=== PATIENT | female | born 1995 | race Caucasian/White ===

== ENCOUNTER 2018-05-29 08:45 | Emergency (ER) | payer BC, OTHER ==
[~2018-05-29] VITALS: Ht 170.2 cm; Wt 90.7 kg
[~2018-05-29 08:45] MED LIST: BCP
--- OUTSIDE RECORDS SUMMARY | 2018-05-29 10:05 | XMS REPORT ---
Author Author KHURRAM JAUREGUI Organization [facility] Address [address] [place] [address] Care Team Providers Care Yard Conductor Name Role Phone KHURRAM JAUREGUI Unavailable PROBLEMS Type Condition ICD9-CM Code HNY28-WI Code Onset Dates Condition Status SNOMED Code Problem Acute pharyngitis 462 Active 606390630 Problem Acute upper respiratory infections of unspecified site 465.9 Active 74721252 Problem examination or test, unconfirmed V72.40 Active 210522047 Problem Fever, unspecified 780.60 Active 527872462 Problem Hand(s) except finger(s) alone, insect bite, nonvenomous, without mention of infection 914.4 Active 06245385 ALLERGIES No Known Allergies ENCOUNTERS Encounter Location Date Diagnosis [facility] [id number] [place] [phone] October, Sore throat J02.9 and Aphthous ulcer K12.0 [facility] [id number] [place] [address] Jan, Sore throat 462 [facility] [id number] [place] [address] Nov, Abscess 682.9 [facility] [id number] [place] [address] Nov, [facility] [id number] [place] [address] Sep, [facility] [id number] [place] [address] Sep, [facility] [id number] [place] [address] May, [facility] [address] [facility] [id number], [place] [address] May, [facility] [address] [facility] [id number], [place] [address] Feb, [facility] [address] [facility] [id number], [place] [address] Feb, [facility] [address] [facility] [id number], [place] [address] Feb, [facility] [address] [facility] [id number], [place] [address] Feb, [facility] [address] [facility] [id number], [place] [address] Dec, [facility] [address] [facility] [id number], [place] [address] Dec, IMMUNIZATIONS No Known Immunizations SOCIAL HISTORY Never Assessed REASON FOR VISIT sore throat Pt c/o sore throat for 2-3 days JAMAAL Muller PLAN OF CARE Activity Details Follow Up prn Reason: VITAL SIGNS Height 66 in 2017-11-13 Weight 219.6 lbs 2017-11-13 Temperature 97.9 degrees Fahrenheit 2017-11-13 Heart Rate 96 bpm 2017-11-13 Respiratory Rate 18 2017-11-13 BMI 35.44 kg/m2 2017-11-13 Blood pressure systolic 120 mmHg 2017-11-13 Blood pressure diastolic 76 mmHg 2017-11-13 MEDICATIONS Medication Instructions Dosage Frequency Start Date End Date Duration [facility] Active RESULTS Name Result Date Reference Range STREP A (IN HOUSE) 2017-11-13 STREP A negative Control + Lot # [id number] Exp date 2020-04-03 PROCEDURES Procedure Date Ordered Result Body Site STREP A ASSAY W/OPTIC November 13, 2017 INSTRUCTIONS MEDICATIONS ADMINISTERED No Known Medications
--- OUTSIDE RECORDS SUMMARY | 2018-05-29 10:05 | XMS REPORT ---
Author Author YARELIS CHUN [facility] Address [address] [place] [address] Care Team Providers Care Accounts Receivable Manager Name Role Phone ADIEL YARELIS Unavailable PROBLEMS Type Condition ICD9-CM Code END09-RV Code Onset Dates Condition Status SNOMED Code Problem Acute pharyngitis 462 Active 067370085 Problem Acute upper respiratory infections of unspecified site 465.9 Active 27721089 Problem examination or test, unconfirmed V72.40 Active 213131744 Problem Fever, unspecified 780.60 Active 585579566 Problem Hand(s) except finger(s) alone, insect bite, nonvenomous, without mention of infection 914.4 Active 03832243 ALLERGIES No Information ENCOUNTERS Encounter Location Date Diagnosis [facility] [id number] [place] [address] Apr, test positive Z32.01 [facility] [id number] [place] [address] October, Sore throat J02.9 and Aphthous ulcer K12.0 [facility] [id number] [place] [address] Jan, Sore throat 462 [facility] [id number] [place] [address] Nov, Abscess 682.9 [facility] [address] [address] Nov, [facility] [id number] [place] [address]- [address] 14 Sep, 2014 [facility] [address] [address] Sep, [facility] [address] [id number] [address] May, [facility] [id number] [place] [address] May, [facility] [id number] [address] Feb, [facility] [id number] [place] [address]- [address] Feb, [facility] [id number] [address] Feb, [facility] [id number] [place] [address] Feb, [facility] [id number] [place] [address] Dec, [facility] [id number], [place] [address] Dec, IMMUNIZATIONS No Known Immunizations SOCIAL HISTORY Never Assessed REASON FOR VISIT test (walk-in) PLAN OF CARE VITAL SIGNS MEDICATIONS Unknown Medications RESULTS Name Result Date Reference Range TEST, URINE (IN HOUSE) 2018-05-23 RESULTS POSITIVE Lot # [id number] Control + Exp date 23 Nov 2019 PROCEDURES No Known procedures INSTRUCTIONS MEDICATIONS ADMINISTERED No Known Medications
--- OUTSIDE RECORDS SUMMARY | 2018-05-29 10:05 | XMS REPORT | Continuity of Care Document ---
Author Author [facility] Address Unknown Phone Unavailable Allergies Active Description Code Type Severity Reaction Onset Reported/Identified Relationship to Patient Clinical Status Yes No Known Drug Allergies [id number] Drug Allergy Unknown N/A 04/24/2016 Medications There is no data. Problems Date Dx Coded Attending Type Code Diagnosis Diagnosed By 12/31/2013 THERON TANG APRN 914.4 INSECT BITE 12/31/2013 YARELIS CHUN DO 914.4 INSECT BITE 12/31/2013 SHAYLA HUMPHREYS APRN 914.4 INSECT BITE 03/03/2014 YARELIS CHUN DO V72.40 TEST 03/03/2014 SHAYLA HUMPHREYS APRN V72.40 TEST 06/13/2014 SHAYLA HUMPHREYS APRN S 462 PHARYNGITIS ACUTE 06/13/2014 SHAYLA HUMPHREYS APRN S 465.9 UPPER RESPIRATORY INFECTION 06/13/2014 SHAYLA HUMPHREYS APRN S 780.60 FEVER, UNSPECIFIED 04/24/2016 PRATIBHA DO CANDY K Ot F10.10 ALCOHOL ABUSE, UNCOMPLICATED 04/24/2016 PRATIBHA DO, CANDY K Ot F17.210 NICOTINE DEPENDENCE, CIGARETTES, UNCOMPL 04/24/2016 PRATIBHA DO, CANDY K Ot F41.9 ANXIETY DISORDER, UNSPECIFIED 04/24/2016 PRATIBHA DO, CANDY K Ot R00.2 PALPITATIONS 04/25/2016 PRATIBHA DO CANDY K Ot F10.10 ALCOHOL ABUSE, UNCOMPLICATED 04/25/2016 PRATIBHA DO, CANDY K Ot F17.210 NICOTINE DEPENDENCE, CIGARETTES, UNCOMPL 04/25/2016 PRATIBHA DO, CANDY K Ot F41.9 ANXIETY DISORDER, UNSPECIFIED 04/25/2016 PRATIBHA DO, CANDY K Ot R00.2 PALPITATIONS 04/25/2016 PRATIBHA DO CANDY K Ot F10.10 ALCOHOL ABUSE, UNCOMPLICATED 04/25/2016 CANDY MCKINNON DO Ot F17.210 NICOTINE DEPENDENCE, CIGARETTES, UNCOMPL 04/25/2016 CANDY MCKINNON DO Ot F41.9 ANXIETY DISORDER, UNSPECIFIED 04/25/2016 CANDY MCKINNON DO Ot R00.2 PALPITATIONS Procedures Code Description [place] [address] ROUTINE VENIPUNCTURE 03/03/2014 11847 TEST, SERUM (RML) 03/03/2014 86420 STREP A (IN-HOUSE) 06/13/2014 02251 INFLUENZA A & B (IN-HOUSE) 06/13/2014 Results Test Result Range Complete blood count (CBC) with automated white blood cell (WBC) differential - 04/24/16 01:32 Blood leukocytes automated count (number/volume) 10.8 10*3/uL 4.3-11.0 Blood erythrocytes automated count (number/volume) 4.17 10*6/uL 4.35-5.85 Venous blood hemoglobin measurement (mass/volume) 12.0 g/dL 11.5-16.0 Blood hematocrit (volume fraction) 36 % 35-52 Automated erythrocyte mean corpuscular volume 85 [foz_us] 80-99 Automated erythrocyte mean corpuscular hemoglobin (mass per erythrocyte) 29 pg 25-34 Automated erythrocyte mean corpuscular hemoglobin concentration measurement ( mass/volume) 34 g/dL 32-36 Automated erythrocyte distribution width ratio 13.3 % 10.0-14.5 Automated blood platelet count (count/volume) 397 10*3/uL 130-400 Automated blood platelet mean volume measurement 9.9 [foz_us] 7.4-10.4 Automated blood neutrophils/100 leukocytes 60 % 42-75 Automated blood lymphocytes/100 leukocytes 28 % 12-44 Blood monocytes/100 leukocytes 8 % 0-12 Automated blood eosinophils/100 leukocytes 4 % 0-10 Automated blood basophils/100 leukocytes 0 % 0-10 Blood neutrophils automated count (number/volume) 6.5 10*3 1.8-7.8 Blood lymphocytes automated count (number/volume) 3.0 10*3 1.0-4.0 Blood monocytes automated count (number/volume) 0.8 10*3 0.0-1.0 Automated eosinophil count 0.4 10*3/uL 0.0-0.3 Automated blood basophil count (count/volume) 0.0 10*3/uL 0.0-0.1 Serum or plasma choriogonadotropin ( test) detection - 04/24/16 01:32 Serum or plasma choriogonadotropin ( test) detection NEGATIVE NEGATIVE Comprehensive metabolic panel - 04/24/16 01:32 Serum or plasma sodium measurement (moles/volume) 141 mmol/L 135-145 Serum or plasma potassium measurement (moles/volume) 3.4 mmol/L 3.6-5.0 Serum or plasma chloride measurement (moles/volume) 108 mmol/L 98-107 Carbon dioxide 22 mmol/L 21-32 Serum or plasma anion gap determination (moles/volume) 11 mmol/L 5-14 Serum or plasma urea nitrogen measurement (mass/volume) 12 mg/dL 7-18 Serum or plasma creatinine measurement (mass/volume) 0.74 mg/dL 0.60-1.30 Serum or plasma urea nitrogen/creatinine mass ratio 16 NRG Serum or plasma creatinine measurement with calculation of estimated glomerular filtration rate > NRG Serum or plasma glucose measurement (mass/volume) 124 mg/dL 70-105 Serum or plasma calcium measurement (mass/volume) 9.3 mg/dL 8.5-10.1 Serum or plasma total bilirubin measurement (mass/volume) 0.2 mg/dL 0.1-1.0 Serum or plasma alkaline phosphatase measurement (enzymatic activity/volume) 75 U/L 40-136 Serum or plasma aspartate aminotransferase measurement (enzymatic activity/ volume) 19 U/L 5-34 Serum or plasma alanine aminotransferase measurement (enzymatic activity/volume ) 21 U/L 0-55 Serum or plasma protein measurement (mass/volume) 7.1 g/dL 6.4-8.2 Serum or plasma albumin measurement (mass/volume) 4.0 g/dL 3.2-4.5 Magnesium - 04/24/16 01:32 Magnesium 2.2 mg/dL 1.8-2.4 Serum or plasma thyrotropin measurement by detection limit <=0.05 miu/l (units/ volume) - 04/24/16 01:32 Serum or plasma thyrotropin measurement by detection limit <=0.05 miu/l (units/ volume) 3.55 u[iU]/mL 0.35-4.94 Urine drug screening test - 04/24/16 01:50 Urine phencyclidine detection by screening method NEGATIVE NEGATIVE Urine benzodiazepines detection by screening method NEGATIVE NEGATIVE Urine cocaine detection NEGATIVE NEGATIVE Urine amphetamines detection by screening method NEGATIVE NEGATIVE Urine methamphetamine detection by screening method NEGATIVE NEGATIVE Urine cannabinoids detection by screening method NEGATIVE NEGATIVE Urine opiates detection by screening method NEGATIVE NEGATIVE Urine barbiturates detection NEGATIVE NEGATIVE Screening urine tricyclic antidepressants detection NEGATIVE NEGATIVE Urine methadone detection by screening method NEGATIVE NEGATIVE Urine oxycodone detection NEGATIVE NEGATIVE Urine propoxyphene detection NEGATIVE NEGATIVE Urine buprenophrine screen NEGATIVE NEGATIVE Encounters ACCT No. Visit Date/Time Discharge Status Pt. Type Provider Facility Loc./Unit Complaint [id number] 06/13/2014 10:22:00 06/13/2014 23:59:59 CLS Outpatient SHAYLA HUMPHREYS APRN [id number] 03/03/2014 11:17:00 03/03/2014 23:59:59 CLS Outpatient YARELIS CHUN DO [id number] 12/31/2013 09:30:00 12/31/2013 23:59:59 CLS Outpatient THERON TANG APRN [id number] 04/24/2016 00:45:00 04/24/2016 02:38:00 DIS Emergency CANDY MCKINNON DO [facility] ER ELEVATED HEART RATE [id number] 11/13/2017 15:30:00 11/13/2017 23:59:59 CLS Outpatient YARELIS CHUN DO [facility]
[2018-05-29 11:22] LABS: BASOPHILS % (AUTO) 0 % (0-10); EOSINOPHILS # (AUTO) 0.3 10^3/uL (0.0-0.3); EOSINOPHILS % (AUTO) 3 % (0-10); HEMATOCRIT 38 % (35-52); HEMOGLOBIN 12.6 G/DL (11.5-16.0); LYMPHOCYTES # (AUTO) 2.6 X 10^3 (1.0-4.0); LYMPHOCYTES % (AUTO) 26 % (12-44); MEAN CORPUSCULAR HEMOGLOBIN 29 PG (25-34); MEAN CORPUSCULAR HGB CONC 33 G/DL (32-36); MEAN CORPUSCULAR VOLUME 88 FL (80-99); MEAN PLATELET VOLUME 9.4 FL (7.4-10.4); MONOCYTES # (AUTO) 0.6 X 10^3 (0.0-1.0); MONOCYTES % (AUTO) 6 % (0-12); NEUTROPHILS # (AUTO) 6.5 X 10^3 (1.8-7.8); NEUTROPHILS % (AUTO) 65 % (42-75); PLATELET COUNT 405 10^3/uL (130-400); RED BLOOD COUNT 4.35 10^6/uL (4.35-5.85); RED CELL DISTRIBUTION WIDTH 12.7 % (10.0-14.5)
--- NOTE | 2018-05-29 12:18 | ED GU-Female ---
General Chief Complaint: -Female Stated Complaint: POSS MISCARRIAGE 5 WKS PREG Nursing Triage Note: Pt ambulated to rm 9 w/o difficulty. Pt reports spotting began Sunday and then heavy bleeding at 0300 this AM. Pt describes bleeding as "a lot" when going to the restroom. Pt c/o cramping. Nursing Sepsis Screen: No Definite Risk Source: patient Exam Limitations: no limitations History of Present Illness Date Seen by Provider: May 29, 2018 Time Seen by Provider: 11:14 Initial Comments 22-year-old female who presents to the emergency room with complaints of vaginal spotting that began 4 days ago. She reports that the bleeding was heavier than normal this morning. She reports that last week she had a positive test at home and then a urine test at and they're estimating her at 5 weeks and that this is her first . She sees for PCP. Timing/Duration: week Allergies and Home Medications Allergies Coded Allergies: No Known Drug Allergies (Unverified , 04/24/16) Patient Home Medication List Home Medication List Reviewed: Yes Review of Systems Review of Systems Constitutional: no symptoms reported, see HPI : Yes LMP: Apr 22, 2018 All Other Systemes Reviewed Negative Unless Noted: Yes Past Deqnsqh-Amcutb-Wxsyng Hx Past Med/Social Hx: Reviewed Nursing Past Med/Soc Hx Patient Social History Alcohol Use: Occasionally Uses Recreational Drug Use: No Smoking Status: Former Smoker Type Used: Cigarettes Recent Foreign Travel: No Contact w/Someone Who Travel: No Recent Infectious Disease Expo: No Recent Hopitalizations: No Physical Abuse: No Sexual Abuse: No Seasonal Allergies Seasonal Allergies: No Past Medical History Surgeries: No Respiratory: No Cardiac: No Neurological: No Reproductive Disorders: No Gastrointestinal: No Musculoskeletal: No Endocrine: No Cancer: No Psychosocial: No Integumentary: No Blood Disorders: No Family Medical History Reviewed Nursing Family Hx Physical Exam Vital Signs Vital Signs - First Documented 05/29/18 11:00 Temp 98.7 Pulse 90 Resp 16 B/P (MAP) 132/99 (110) Pulse Ox 98 O2 Delivery Room Air Capillary Refill : Less Than 3 Seconds Height, Weight, BMI Height: 5'7.00" Weight: 200lbs. oz. 90.572856mn; BMI Method:Stated General Appearance: WD/WN, no apparent distress Cardiovascular: normal peripheral pulses, regular rate, rhythm, no edema, no gallop, no JVD, no murmur Respiratory: chest non-tender, lungs clear, normal breath sounds, no respiratory distress, no accessory muscle use, respiratory distress Gastrointestinal: normal bowel sounds, non tender, soft, no organomegaly, no pulsatile mass, abnormal bowel sounds Neurologic/Psychiatric: alert, normal mood/affect, oriented x 3 Skin: normal color, warm/dry Progress/Results/Core Measures Suspected Sepsis Recent Fever Within 48 Hours: No Infection Criteria Present: None New/Unexplained Altered Menta: No Sepsis Screen: No Definite Risk SIRS Temperature:98.7 Pulse: 90 Respiratory Rate: 16 Laboratory Tests 05/29/18 11:15: White Blood Count 10.0 Blood Pressure 132 /99 Mean: 110 Laboratory Tests 05/29/18 11:15: Platelet Count 405H Results/Orders Lab Results Laboratory Tests Test 05/29/18 11:15 05/29/18 12:25 Range/Units White Blood Count 10.0 4.3-11.0 10^3/uL Red Blood Count 4.35 4.35-5.85 10^6/uL Hemoglobin 12.6 11.5-16.0 G/DL Hematocrit 38 35-52 % Mean Corpuscular Volume 88 80-99 FL Mean Corpuscular Hemoglobin 29 25-34 PG Mean Corpuscular Hemoglobin Concent 33 32-36 G/DL Red Cell Distribution Width 12.7 10.0-14.5 % Platelet Count 405 H 130-400 10^3/uL Mean Platelet Volume 9.4 7.4-10.4 FL Neutrophils (%) (Auto) 65 42-75 % Lymphocytes (%) (Auto) 26 12-44 % Monocytes (%) (Auto) 6 0-12 % Eosinophils (%) (Auto) 3 0-10 % Basophils (%) (Auto) 0 0-10 % Neutrophils # (Auto) 6.5 1.8-7.8 X 10^3 Lymphocytes # (Auto) 2.6 1.0-4.0 X 10^3 Monocytes # (Auto) 0.6 0.0-1.0 X 10^3 Eosinophils # (Auto) 0.3 0.0-0.3 10^3/uL Basophils # (Auto) 0.0 0.0-0.1 10^3/uL Human Chorionic Gonadotropin, Quant 13 H <5 MIU/ML Urine Color YELLOW Urine Clarity VERY CLOUDY H Urine pH 5 5-9 Urine Specific [place] 1.010 L 1.016-1.022 Urine Protein 2+ H NEGATIVE Urine Glucose (UA) NEGATIVE NEGATIVE Urine Ketones NEGATIVE NEGATIVE Urine Nitrite NEGATIVE NEGATIVE Urine Bilirubin NEGATIVE NEGATIVE Urine Urobilinogen NORMAL NORMAL MG/DL Urine Leukocyte Esterase 1+ H NEGATIVE Urine RBC (Auto) 5+ H NEGATIVE Urine RBC >100 H /HPF Urine WBC 2-5 /HPF Urine Crystals NONE /LPF Urine Bacteria TRACE /HPF Urine Casts NONE /LPF Urine Mucus NEGATIVE /LPF Urine Culture Indicated NO My Orders Orders - SHALINI BOUDREAUX Us Ob Transvaginal [id number] (05/29/18 10:59) Vital Signs/I&O Capillary Refill : Less Than 3 Seconds Blood Pressure Mean: 110 Progress Note : Time: 12:17 Progress Note I have seen and evaluated the patient. I've informed her of her laboratory and ultrasound findings. design technician reports that there is just fluid in the endometrium and no pole. Patient agrees with plans for discharge, plans for follow-up, return precautions were given. Diagnostic Imaging Diagonstic Imaging: Ultrasound Comments [facility] [place] NAME: MARBELLA BARNES [facility] REC#: [id number] PT STATUS: REG ER : 1995 PHYSICIAN: SHALINI BOUDREAUX ADMIT DATE: 05/29/18/ER Draft Date of Exam:05/29/18 US OB TRANSVAGINAL [id number] INDICATION: Possible miscarriage. FINDINGS: The uterus measures 6.7 x 3.4 x 2.7 cm. Endometrium is 8 mm in thickness. There is a tiny approximately 3 mm cyst or fluid collection in the lower uterine segment. No definite gestational sac or pole is seen. No myometrial mass is identified. The right ovary measures 2.2 x 1.4 x 1.7 cm and the left ovary measures 2.6 x 1.7 x 1.2 cm. No adnexal mass or free fluid is seen. IMPRESSION: There is a 3 mm cystic structure in the lower uterine segment. This may represent a small amount of fluid. Possibility of a tiny gestational sac cannot be entirely excluded. There is no pole or yolk sac seen at this time. No adnexal mass to suggest ectopic is seen. Follow-up ultrasound and/or correlation with serial beta-hCG levels could be performed. Dictated on workstation # [id number] Dict: 05/29/18 1217 Trans: 05/29/18 1222 [id number] Interpreted by: STEVEN BLACK MD Electronically signed by: Reviewed: Reviewed by Me Departure Impression Primary Impression: Miscarriage, threatened, early Additional Impression: Miscarriage Disposition: 01 HOME, SELF-CARE Condition: Stable/Unchanged Departure-Patient Inst. Decision time for Depature: 12:20 Referrals: [facility] (PCP/Family) Primary Care Physician Patient Instructions: Miscarriage (DC) Add. Discharge Instructions: Follow-up with within 1 week for a recheck. Call today for an appointment time. You may use Tylenol as needed for pain control as directed by the bottle. Return back to the emergency room for any worsening symptoms, heavier vaginal bleeding, or any other concerns as needed. All discharge instructions reviewed with patient and/or family. Voiced understanding. SHALINI BOUDREAUX May 29, 2018 12:18
--- NOTE | 2018-05-29 12:23 | Diagnostic Imaging Report ---
INDICATION: Possible miscarriage. FINDINGS: The uterus measures 6.7 x 3.4 x 2.7 cm. Endometrium is 8 mm in thickness. There is a tiny approximately 3 mm cyst or fluid collection in the lower uterine segment. No definite gestational sac or pole is seen. No myometrial mass is identified. The right ovary measures 2.2 x 1.4 x 1.7 cm and the left ovary measures 2.6 x 1.7 x 1.2 cm. No adnexal mass or free fluid is seen. IMPRESSION: There is a 3 mm cystic structure in the lower uterine segment. This may represent a small amount of fluid. Possibility of a tiny gestational sac cannot be entirely excluded. There is no pole or yolk sac seen at this time. No adnexal mass to suggest ectopic is seen. Follow-up ultrasound and/or correlation with serial beta-hCG levels could be performed. Dictated by: Dictated on workstation # [id number]
[2018-05-29 12:35] LABS: BILIRUBIN,URINE NEGATIVE (NEGATIVE); CLARITY,URINE VERY CLOUDY; COLOR,URINE YELLOW; GLUCOSE, URINE (UA) NEGATIVE (NEGATIVE); KETONES,URINE NEGATIVE (NEGATIVE); LEUKOCYTE ESTERASE ,URINE 1+ (NEGATIVE); NITRITE,URINE NEGATIVE (NEGATIVE); PH,URINE 5 (5-9); PROTEIN,URINE 2+ (NEGATIVE); UROBILINOGEN,URINE NORMAL (NORMAL)
[2018-05-29 12:45] VITALS: BP 127/87
[2018-05-29 12:47] LABS: BACTERIA,URINE TRACE /HPF; RBC,URINE >100 /HPF
== END 2018-05-29 12:45 | disposition home or self-care (01) ==
LOC: EDUNIT# 08:45 → ER 08:48
DX: O20.0 Threatened abortion (principal); Z3A.01 Less than 8 weeks gestation of pregnancy; Z87.891 Personal history of nicotine dependence
CPT/HCPCS: 36415; 76817; 81000; 84702; 85025; 86900; 86901